=== PATIENT | female | born 1975 | race Caucasian/White ===

== ENCOUNTER → 2022-12-08 10:44 | Outpatient (BNVA) | payer MEDICARE, SELFPAY | PROVIDERS: PCP Family Medicine; Referring Provider Family Medicine; Visit Provider Psychiatry & Neurology Neurology | DX: G43.839 Menstrual migraine, intractable, without status migrainosus (principal); F07.81 Postconcussional syndrome; D89.40 Mast cell activation, unspecified; I65.02 Occlusion and stenosis of left vertebral artery; G93.5 Compression of brain; M54.81 Occipital neuralgia; E04.9 Nontoxic goiter, unspecified; E03.9 Hypothyroidism, unspecified | CPT/HCPCS: 99204 ==

== ENCOUNTER 2023-02-09 12:55 | Oncology outpatient (recurring) (ONCR) | payer MEDICARE, SELFPAY ==
[2023-02-09 13:08] VITALS: BP 124/80; PULSE 87; RESP 16; TEMP 36.5; O2SAT 99
[2023-02-09] MEDS: eptinezumab-jjmr 100 MG in sodium chloride 0.9% (100 ml) 100 ML 202 MG IV (14:03)
[2023-02-09] MEDS: sodium chloride 0.9% 250 ML 75 ML IV (14:03)
[2023-02-09 14:40] VITALS: BP 116/70; PULSE 75; RESP 16; TEMP 36.5; O2SAT 99
== END 2023-02-21 23:59 | disposition home or self-care (01) ==
PROVIDERS: PCP Family Medicine; Visit Provider Psychiatry & Neurology Neurology
DX: G43.411 Hemiplegic migraine, intractable, with status migrainosus (principal); M54.81 Occipital neuralgia
CPT/HCPCS: 96365; 99212; J3032; J7050

== ENCOUNTER 2023-05-04 10:57 | Oncology outpatient (recurring) (ONCR) | payer MEDICARE, SELFPAY ==
[2023-05-04] MEDS: eptinezumab-jjmr 100 MG in sodium chloride 0.9% (100 ml) 100 ML 202 MG IV (12:15)
[2023-05-04 13:21] VITALS: BP 108/73; PULSE 73; O2SAT 98
== END 2023-05-24 23:59 | disposition home or self-care (01) ==
PROVIDERS: PCP Family Medicine; Visit Provider Psychiatry & Neurology Neurology
DX: G43.909 Migraine, unspecified, not intractable, without status migrainosus (principal)
CPT/HCPCS: 96365; J3032

== ENCOUNTER 2023-10-20 11:23 | Oncology outpatient (recurring) (ONCR) | payer MEDICARE, SELFPAY ==
[2023-10-20 11:51] VITALS: BP 131/77; PULSE 74; RESP 16; TEMP 36.6; O2SAT 98
[2023-10-20] MEDS: eptinezumab-jjmr 100 MG in sodium chloride 0.9% (100 ml) 100 ML 202 MG IV (12:10)
[2023-10-20 13:10] VITALS: BP 119/79; PULSE 70; RESP 17; TEMP 36.7; O2SAT 99
== END 2023-10-23 23:59 | disposition home or self-care (01) ==
PROVIDERS: PCP Family Medicine; Visit Provider Psychiatry & Neurology Neurology
DX: G43.909 Migraine, unspecified, not intractable, without status migrainosus (principal); Z79.899 Other long term (current) drug therapy
CPT/HCPCS: 96413; J3032

== ENCOUNTER → 2023-10-28 13:21 | Outpatient (BNVA) | payer MEDICARE, SELFPAY | PROVIDERS: PCP Family Medicine; Visit Provider Psychiatry & Neurology Neurology | DX: G43.411 Hemiplegic migraine, intractable, with status migrainosus (principal); M54.81 Occipital neuralgia; R29.90 Unspecified symptoms and signs involving the nervous system; R11.2 Nausea with vomiting, unspecified | CPT/HCPCS: 96372; 99212; J2405 ==

== ENCOUNTER 2024-01-29 09:48 | Oncology outpatient (recurring) (ONCR) | payer MEDICARE, OTHER, SELFPAY ==
[2024-01-29] MEDS: eptinezumab-jjmr 300 MG in sodium chloride 0.9% (100 ml) 100 ML 206 MG IV (10:49)
[2024-01-29 11:30] VITALS: BP 128/82; PULSE 73; RESP 16; TEMP 37; O2SAT 99
== END 2024-02-22 23:59 | disposition home or self-care (01) ==
PROVIDERS: PCP Family Medicine; Visit Provider Psychiatry & Neurology Neurology
DX: Z79.899 Other long term (current) drug therapy (principal); G43.909 Migraine, unspecified, not intractable, without status migrainosus
CPT/HCPCS: 96413; J3032

== ENCOUNTER 2024-05-05 09:50 | Oncology outpatient (recurring) (ONCR) | payer MEDICARE, SELFPAY ==
[2024-05-05 10:05] VITALS: BP 96/64; PULSE 66; RESP 16; TEMP 36.3; O2SAT 95
[2024-05-05] MEDS: eptinezumab-jjmr 300 MG in sodium chloride 0.9% (100 ml) 100 ML 206 MG IV (11:02)
[2024-05-05 11:54] VITALS: BP 104/72; PULSE 74; RESP 16; TEMP 36.9; O2SAT 97
== END 2024-05-24 23:59 | disposition home or self-care (01) ==
PROVIDERS: PCP Family Medicine; Visit Provider Specialist
DX: G43.909 Migraine, unspecified, not intractable, without status migrainosus (principal); Z79.899 Other long term (current) drug therapy
CPT/HCPCS: 96413; A4222; J3032

== ENCOUNTER 2024-08-02 09:46 | Oncology outpatient (recurring) (ONCR) | payer OTHER, SELFPAY ==
[2024-08-02 10:24] VITALS: BP 111/71; PULSE 72; RESP 17; TEMP 37.2; O2SAT 97
[2024-08-02] MEDS: sodium chloride 0.9% 250 ML 75 ML IV (10:26)
[2024-08-02] MEDS: eptinezumab-jjmr 300 MG in sodium chloride 0.9% (100 ml) 100 ML 206 MG IV (11:12)
[2024-08-02 11:57] VITALS: BP 122/79; PULSE 76; RESP 14; TEMP 36.7; O2SAT 100
== END 2024-08-22 23:59 | disposition home or self-care (01) ==
LOC: ONCMED 09:47
PROVIDERS: PCP Family Medicine; Visit Provider Specialist
DX: G43.909 Migraine, unspecified, not intractable, without status migrainosus (principal); Z79.899 Other long term (current) drug therapy
CPT/HCPCS: 96413; A4222; J3032; J7050

== ENCOUNTER → 2024-09-07 12:52 | Outpatient (BNVA) | payer MEDICARE, OTHER, SELFPAY | PROVIDERS: PCP Family Medicine; Visit Provider Psychiatry & Neurology Neurology | DX: G43.909 Migraine, unspecified, not intractable, without status migrainosus (principal); M54.81 Occipital neuralgia; G43.411 Hemiplegic migraine, intractable, with status migrainosus; R29.2 Abnormal reflex; R29.90 Unspecified symptoms and signs involving the nervous system | CPT/HCPCS: 99213 ==

== ENCOUNTER 2024-09-27 11:45 | Oncology outpatient (recurring) (ONCR) | payer OTHER, SELFPAY ==
--- NOTE | 2024-09-27 12:15 | MR_ITS ---
WS: [id number] MRI BRAIN WITH AND WITHOUT CONTRAST HISTORY: G43.909 - Migraine, unspecified, not intractable, without... COMPARISON: 01/07/2023 TECHNIQUE: Multiplanar imaging performed through the brain with MultiHance 10 ml's IV. No acute infarcts are seen. Alfaro-white matter differentiation is well preserved. Minimal small vessel disease. No prior infarct. Normal hippocampal formations. No susceptibility artifacts or prior lacunar infarcts. Ventricles and extra-axial spaces are normal. Clivus and pituitary gland are normal. Visualized posterior fossa and brainstem are also normal. Postcontrast images are negative for masses or vascular malformations. Dural venous sinuses are normal. Paranasal sinuses: Well aerated with no significant disease. Mastoid air cells: Normal. Calvarium and scalp: Normal. MR/MR head wo/w con [id number] IMPRESSION: 1. Normal MRI brain with contrast. 2. No infarcts or abnormal enhancement. No demyelinating disease.
--- NOTE | 2024-09-27 13:00 | MR_ITS ---
WS: [id number] MRI CERVICAL SPINE with and without contrast HISTORY: G43.909 - Migraine, unspecified, not intractable, COMPARISON: 06/13/2015 Technique: Multiplanar, multisequence noncontrast imaging of the cervical spine. Postcontrast imaging MultiHance, 10 mL IV. Normal cervical alignment with no compression fracture or significant disc space narrowing. No fractures. Normal marrow signal. Craniocervical junction, C1 and C2 relationship, odontoid process and soft tissues are normal. Well-corticated osseous densities adjacent to the tip of the odontoid are stable. C2-C3: Normal. C3-C4: Small central disc protrusion, similar to the prior study. Small LEFT foraminal osteophytes. Very mild narrowing of the LEFT foramen. C4-C5: Osteophytic ridging with annular disc bulging. Disc osteophyte greatest to the RIGHT. Very mild foraminal narrowing. C5-C6: Mild osteophytic ridging with disc bulging and facet arthritis. No significant stenosis. C6-C7: Small foraminal osteophytes. No stenosis. C7-T1: Normal. Paraspinal soft tissues are negative. No discitis or osteomyelitis. No enhancing masses. No thyroid nodules identified. MR/MR cervical spine wo/w [id number] IMPRESSION: 1. No high-grade central or foraminal stenosis. 2. Small central disc protrusion at C3-4 is unchanged. Mild LEFT foraminal maureen rowing due to osteophyte disease. 3. Very minimal foraminal narrowing at C4-5 predominantly due to osteophytes. 4. No enhancing masses. No discitis or osteomyelitis.
[2024-09-27] MEDS: gadobenate dimeglumine 20 mL vial 10 ML IV (13:19)
== END 2024-10-22 23:59 | disposition home or self-care (01) ==
LOC: RAD 13:44 → ONCMED 09-28 09:25
PROVIDERS: PCP Family Medicine; Visit Provider Psychiatry & Neurology Neurology
DX: G43.909 Migraine, unspecified, not intractable, without status migrainosus (principal); R29.2 Abnormal reflex; G43.411 Hemiplegic migraine, intractable, with status migrainosus; M54.81 Occipital neuralgia; Z79.899 Other long term (current) drug therapy; M50.21 Other cervical disc displacement, high cervical region; M25.78 Osteophyte, vertebrae; M48.02 Spinal stenosis, cervical region
CPT/HCPCS: 70553; 72156

== ENCOUNTER 2024-11-01 13:30 | Oncology outpatient (recurring) (ONCR) | payer OTHER, SELFPAY ==
[2024-11-01 13:51] VITALS: BP 130/83; PULSE 82; RESP 16; TEMP 36.8; O2SAT 99
[2024-11-01] MEDS: eptinezumab-jjmr 300 MG in sodium chloride 0.9% (100 ml) 100 ML 206 MG IV (15:01)
[2024-11-01 15:44] VITALS: BP 122/81; PULSE 84; RESP 18; TEMP 36.8; O2SAT 100
== END 2024-11-21 23:59 | disposition home or self-care (01) ==
LOC: ONCMED 13:30
PROVIDERS: PCP Family Medicine; Visit Provider Psychiatry & Neurology Neurology
DX: G43.909 Migraine, unspecified, not intractable, without status migrainosus (principal); Z79.899 Other long term (current) drug therapy
CPT/HCPCS: 96365; A4222; J3032

== ENCOUNTER 2025-01-25 11:41 | Oncology outpatient (recurring) (ONCR) | payer OTHER, SELFPAY ==
[2025-01-25] MEDS: eptinezumab-jjmr 300 MG in sodium chloride 0.9% (100 ml) 100 ML 206 MG IV (12:48)
[2025-01-25 13:32] VITALS: BP 122/76; PULSE 76; RESP 16; TEMP 36.4; O2SAT 98
== END 2025-02-21 23:59 | disposition home or self-care (01) ==
LOC: ONCMED 11:45
PROVIDERS: PCP Family Medicine; Visit Provider Specialist
DX: G43.909 Migraine, unspecified, not intractable, without status migrainosus (principal); Z79.899 Other long term (current) drug therapy
CPT/HCPCS: 96413; A4222; J3032

== ENCOUNTER 2025-04-17 12:43 | Oncology outpatient (recurring) (ONCR) | payer OTHER, SELFPAY ==
[2025-04-17] MEDS: eptinezumab-jjmr 300 MG in sodium chloride 0.9% (100 ml) 100 ML 206 MG IV (13:42)
[2025-04-17 14:18] VITALS: BP 105/69; PULSE 81; RESP 16; TEMP 37.3; O2SAT 98
== END 2025-04-23 23:59 | disposition home or self-care (01) ==
PROVIDERS: PCP Family Medicine; Visit Provider Specialist
DX: G43.909 Migraine, unspecified, not intractable, without status migrainosus (principal); Z79.899 Other long term (current) drug therapy
CPT/HCPCS: 96365; A4222; J3032